=== PATIENT | female | born 1995 | race Two or more races ===

== ENCOUNTER 2017-05-01 00:34 | Emergency (ER) | payer BC, MEDICAID ==
[~2017-05-01] VITALS: Ht 167.6 cm; Wt 47.6 kg
[2017-05-01] MEDS ORDERED: CYCLOBENZAPRINE HCL 10 MG TABLET PO ONE (00:45)
[2017-05-01] MEDS ORDERED: IBUPROFEN 400 MG TABLET PO ONE (00:45)
--- NOTE | 2017-05-01 00:55 | NUR ---
Patient discharged to home in stable conditon. Written and verbal after care instructions given. Patient verbalizes understanding of instructions.
[2017-05-01] MEDS ORDERED: IBUPROFEN 400 MG TABLET ONE (01:01)
[2017-05-01] MEDS ORDERED: CYCLOBENZAPRINE HCL 10 MG TABLET ONE (01:01)
== END 2017-05-01 00:57 | disposition home or self-care (01) ==
LOC: ER 00:36
DX: S13.4XXA Sprain of ligaments of cervical spine, initial encounter (principal); V43.52XA Car driver injured in collision with other type car in traffic accident, initial encounter; Y93.89 Activity, other specified; Y92.413 State road as the place of occurrence of the external cause; Y99.9 Unspecified external cause status
CPT/HCPCS: A4663

== ENCOUNTER 2017-09-02 20:29 | Emergency (ER) | payer BC, MEDICAID, OTHER ==
[~2017-09-02] VITALS: Ht 157.5 cm; Wt 54.4 kg
[2017-09-02] MEDS ORDERED: METOCLOPRAMIDE HCL 10 MG/2 ML VIAL IV ONE (21:30)
[2017-09-02] MEDS ORDERED: IV NORMAL SALINE 1000 ML BAG IV ONE (21:30)
[2017-09-02] MEDS ORDERED: KETOROLAC TROMETHAMINE 15 MG INJ IV ONE (21:30)
[2017-09-02] MEDS ORDERED: KETOROLAC TROMETHAMINE 15 MG INJ ONE (21:52)
[2017-09-02] MEDS ORDERED: METOCLOPRAMIDE HCL 10 MG/2 ML VIAL ONE (21:52)
[2017-09-02 21:59] LABS: BASOPHILS # (AUTO) 0.1 K/uL (0.0-8.0); BASOPHILS % (AUTO) 0.7 % (0.0-2.0); EOSINOPHILS # (AUTO) 0.2 K/uL (0.0-0.7); EOSINOPHILS % (AUTO) 2.2 % (0.0-7.0); HEMATOCRIT 43.9 % (37-47); HEMOGLOBIN 14.6 G/DL (12.0-16.0); LYMPHOCYTES # (AUTO) 1.5 K/UL (0.8-4.8); LYMPHOCYTES % (AUTO) 14.4 % (20.5-74.5); MEAN CORPUSCULAR HEMOGLOBIN 31.1 UUG (27.0-31.0); MEAN CORPUSCULAR HGB CONC 33 g/dL (32.0-37.0); MEAN CORPUSCULAR VOLUME 93.4 FL (81.0-99.0); MONOCYTES # (AUTO) 0.4 K/UL (0.1-1.30); MONOCYTES % (AUTO) 3.5 % (0-11); NEUTROPHILS # (AUTO) 8.2 K/UL (1.8-8.9); NEUTROPHILS % (AUTO) 79.2 % (31.5-64.5); PLATELET COUNT (AUTO) 281 K/UL (150-450); WHITE BLOOD COUNT (AUTO) 10.4 K/UL (4.0-11.2)
[2017-09-02 22:06] LABS: CREATININE 0.8 mg/dL (0.6-1.3); POTASSIUM 4.6 mmol/L (3.5-5.1)
[2017-09-02 22:11] LABS: BILIRUBIN,DIRECT 0.1 mg/dL (0.0-0.2); BILIRUBIN,TOTAL 0.4 mg/dL (0.2-1.0); TOTAL PROTEIN, SERUM 8.1 g/dL (6.4-8.2)
[2017-09-02 22:55] LABS: *BILIRUBIN,URIN NEGATIVE (NEGATIVE); *BLOOD, URINE Trace-intact (NEGATIVE); *CLARITY,URINE SLIGHTLY CLOUDY (CLEAR); *COLOR,URINE YELLOW (YELLOW); *KETONES,URINE 4+ (NEGATIVE); *PROTEIN,URINE NEGATIVE (NEGATIVE); *UROBILINOGEN,URINE 0.2 E.U./dl (NORMAL); LEUKOCYTE ESTERASE ,URINE NEGATIVE (NEGATIVE); NITRITE, URINE NEGATIVE (NEGATIVE); UGLUCOSE NEGATIVE (NEGATIVE)
[2017-09-02 23:03] LABS: BACTERIA,URINE NONE SEEN /HPF (NONE SEEN); MUCUS,URINE FEW /LPF (0-FEW); RBC,URINE 0-3 /HPF (0-3); SQUAMOUS EPITHELIAL CELL,UR MODERATE /HPF (NONE SEEN); WBC,URINE 0-3 /HPF (0-3)
--- NOTE | 2017-09-02 23:19 | NUR ---
Patient discharged to home in stable conditon. Written and verbal after care instructions given. Patient verbalizes understanding of instructions.
== END 2017-09-02 23:20 | disposition home or self-care (01) ==
LOC: ER 20:30
DX: K52.9 Noninfective gastroenteritis and colitis, unspecified (principal); K59.00 Constipation, unspecified
CPT/HCPCS: 36415; 70030-TC; 83690; 84703; 85025; A4663; J1885; J2765; J7030